=== PATIENT | female | born 1960 | race Caucasian/White ===

== ENCOUNTER 2017-06-11 13:20 | Emergency (ER) | payer OTHER ==
[~2017-06-11] VITALS: Ht 157.5 cm; Wt 87.9 kg
[~2017-06-11 13:20] MED LIST: AZIT250T94 PO; CLOT30CR24 TOP; IBUP-1542 PO; NITR-58 PO; PHEN-537 PO; PRED50TA PO
[2017-06-11 13:22] VITALS: Ht 157.5 cm; Wt 87.9 kg
[2017-06-11] MEDS ORDERED: KETOROLAC 30 MG INJ IM STA (14:12)
--- NOTE | 2017-06-11 14:27 | ERD ---
ER Documentation Chief Complaint Chief Complaint Complains of severe back pain x 5 days HPI This is a 56-year-old female who presents the emergency department today complaining of right-sided back pain for the past 4 days. Patient states she is taking ibuprofen with limited improvement in symptoms. 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 States she has pain he sits down. Denies any significant trauma, fevers or chills, loss of bowel or bladder control, dysuria or hematuria. ROS All systems reviewed and are negative except as per history of present illness. Medications Home Meds Active Scripts Naproxen* (Naprosyn*) 500 Mg Tablet, 500 MG PO BID Y for PAIN AND/OR INFLAMMATION, #30 TAB Prov:AIDA ARMANDO PA-C 06/11/17 Tramadol HCl (Tramadol HCl) 50 Mg Tablet, 50 MG PO Q4 Y for PAIN, #20 TAB Prov:AIDA ARMANDO PA-C 06/11/17 Clotrimazole* (Clotrimazole* AF) 1% - 30 Gm Cream.gm., 1 APPLIC TOP BID for 7 Days, TUB Prov:KIET HOANG 06/18/15 Phenazopyridine Hcl* (Pyridium*) 100 Mg Tab, 100 MG PO TID for 3 Days, TAB Prov:KIET HOANG 06/18/15 Nitrofurantoin Monohyd Macrocr* (Macrobid*) 100 Mg Capsr, 100 MG PO BID for 7 Days, CAP Prov:KIET HOANG 06/18/15 Prednisone* (Prednisone*) 50 Mg Tablet, 50 MG PO DAILY, #3 TAB Prov:SANTOSH PECK PA-C 05/17/15 Ibuprofen* (Motrin*) 600 Mg Tab, 600 MG PO Q6H Y for PAIN AND OR ELEVATED TEMP, #30 Prov:SANTOSH PECK PA-C 05/17/15 Azithromycin* (Zithromax*) 250 Mg Tablet, 250 MG PO .RABIA DIRECTED, #6 TAB TAKE 500 MG (2 TABS) THE FIRST DAY THEN 250 MG (1 TAB) DAYS 2-5 Prov:SANTOSH PECK PA-C 05/17/15 Allergies Allergies: Coded Allergies: amoxicillin (Verified Allergy, Unknown, 06/11/17) PMhx/Soc Medical and Surgical Hx: pt denies Medical Hx, pt denies Surgical Hx History of Surgery: No Anesthesia Reaction: No Hx Neurological Disorder: No Hx Respiratory Disorders: No Hx Cardiac Disorders: No Hx Psychiatric Problems: No Hx Miscellaneous Medical Probl: No Hx Alcohol Use: No Hx Substance Use: No Hx Tobacco Use: No Smoking Status: Never smoker Physical Exam Vitals Vital Signs Date Time Temp Pulse Resp B/P Pulse Ox O2 Delivery O2 Flow Rate FiO2 06/11/17 13:22 97.1 89 20 153/72 96 Physical Exam Const: NAD Head: Atraumatic Eyes: Normal Conjunctiva ENT: Normal External Ears, Nose and Mouth. Neck: Full range of motion..~ No meningismus. Resp: Clear to auscultation bilaterally Cardio: Regular rate and rhythm, no murmurs Abd: Soft, non tender, non distended. Normal bowel sounds Skin: No petechiae or rashes Back: No midline tenderness, sided flank tenderness. No CVA tenderness. Full active range of motion. Pulses 2+. Distal neurovascularly intact. Negative straight leg raise. Ext: No cyanosis, or edema Neur: Awake and alert Psych: Normal Mood and Affect Results 24 hrs Laboratory Tests Test 06/11/17 14:14 Urine Color STRAW Urine Clarity CLEAR Urine pH 6.0 Urine Specific Odell 1.004 Urine Ketones NEGATIVEmg/dL Urine Nitrite NEGATIVEmg/dL Urine Bilirubin NEGATIVEmg/dL Urine Urobilinogen NEGATIVEmg/dL Urine Leukocyte Esterase NEGATIVELeu/ul Urine Hemoglobin NEGATIVEmg/dL Urine Glucose NEGATIVEmg/dL Urine Total Protein NEGATIVEmg/dl Current Medications Medications (Trade) Dose Ordered Sig/Simon Route PRN Reason Start Time Stop Time Status Last Admin Dose Admin Ketorolac Tromethamine (Toradol) 30 mg ONCE STAT IM 06/11/17 14:12 06/11/17 14:14 DC 06/11/17 14:23 DIAGNOSTIC IMAGING REPORT Patient: LENNOX ARELLANO : 1960 Age: 56 Sex: F MR #: [id number] DOS: 06/11/17 0000 Ordering MD: AIDA ARMANDO PA-C Location: E Room/Bed: PROCEDURE: XR Lumbar Spine. CLINICAL INDICATION: Low back pain. No trauma. TECHNIQUE: Four views of the lumbar spine are available for review including AP, lateral and both obliques. COMPARISON: None available FINDINGS: There is a shallow levoscoliosis. There is hyper lordosis. Moderate spondylosis/degenerative enthesopathy changes are present at L2-3, L3-4 and L4- 5. Findings consist of disc space narrowing and anterior osteophytes/ enthesophyte formation. The bones are osteopenic. No evidence for vertebral body compression fracture. There are moderate degenerative changes of the facets at L5-S1. IMPRESSION: 1. Shallow levoscoliosis and hyper lordosis. 2. Moderate spondylosis/degenerative enthesopathy from L2-3 to L4-5. 3. Osteopenia. No evidence for fracture. RPTAT: XX .Jalen sEcudero MD, MD Date Time Electronically viewed and signed by .Jalen Escudero MD, on 06/11/2017 14: 55 .T/ CC: AIDA ARMANDO PA-C Procedures/MDM This is a 56-year-old female who presents the emergency department today complaining of right-sided back pain for the past 4 days. Patient has not had any improvement with ibuprofen given the patient's age and physical exam I did obtain images as a UA UA is negative for infection or hematuria Per the radiology report images of the lumbar spine show shallow levoscoliosis and hyperlordosis. There is moderate spondylosis and degenerative changes from L2-3 and L4 and 5. There is osteopenia with no evidence for fracture. There is disc space narrowing. Patient is afebrile and otherwise well-appearing. She has no loss of bowel or bladder control. Low suspicion for cauda equina or abscess. Low suspicion for pyelonephritis, nephrolithiasis, urinary tract infection. Symptoms at this time consistent with back pain. Patient does have evidence of degenerative disc disease. I have explained this to the patient. Her symptoms at this time appear musculoskeletal. Patient was given Toradol here in the emergency department and reported feeling significant improvement. She was given a short course of tramadol, Naprosyn for home. At this time the patient is stable for discharge and outpatient management. Patient should follow up with their PCP in the next 1-2 days. They may return to the emergency department sooner for any persistent or worsening of symptoms. Patient understood and agreed with the plan. Departure Diagnosis: Primary Impression: Back pain Back pain location: low back pain Chronicity: acute Back pain laterality: right Sciatica presence: without sciatica Qualified Code: M54.5 - Acute right-sided low back pain without sciatica Condition: AIDA Sanches PA-C Jun 11, 2017 14:27
--- NOTE | 2017-06-11 14:56 | RADRPT ---
PROCEDURE: XR Lumbar Spine. CLINICAL INDICATION: Low back pain. No trauma. TECHNIQUE: Four views of the lumbar spine are available for review including AP, lateral and both obliques. COMPARISON: None available FINDINGS: There is a shallow levoscoliosis. There is hyper lordosis. Moderate spondylosis/degenerative enthe sopathy changes are present at L2-3, L3-4 and L4-5. Findings consist of disc space narrowing and ant erior osteophytes/enthesophyte formation. The bones are osteopenic. No evidence for vertebral body c ompression fracture. There are moderate degenerative changes of the facets at L5-S1. IMPRESSION: 1. Shallow levoscoliosis and hyper lordosis. 2. Moderate spondylosis/degenerative enthesopathy from L2-3 to L4-5. 3. Osteopenia. No evidence for fracture. RPTAT: XX .Jalen Escudero MD, Date Time Electronically viewed and signed by .Jalen Escudero MD, on 06/11/2017 14:55 .T/
[2017-06-11] MEDS ORDERED: NAPR-260 PO (15:29)
[2017-06-11] MEDS ORDERED: TRAM50TA2 PO (15:29)
== END 2017-06-11 16:02 | disposition home or self-care (01) ==
LOC: FTE 13:20
DX: M54.5 Low back pain (principal)
CPT/HCPCS: 72100; 81003; 96372; J1885; Z7502

== ENCOUNTER 2017-09-18 18:45 | Emergency (ER) | END 2017-09-18 22:37 | disposition home or self-care (01) ==